=== PATIENT | male | born 1940 | race Caucasian/White ===

== ENCOUNTER 2022-01-08 16:52 | Inpatient (IN) | payer MEDICARE ==
[~2022-01-08] VITALS: Ht 182.9 cm; Wt 64.4 kg
--- NOTE | 2022-01-08 16:52 | NUR ---
PT IRA[place] FROM HOME TO ER BED 09, PER EMS REPORT PATIENT WAS FOUND BY NEIGHBOR IN THE FLOOR AT BEDSIDE S/P CALLED THEM FOR HELP. PER REPORT PT WAS NOTED HAVING DIFFICULTY FORMING WORDS AND APPEARS TO BE CONFUSED. NO NOTED FOCAL WEAKNESS WAREHOUSE FOREMAN. GOWNED AND PLACED ON MONITOR. VSS. AWAITING MD HOLLAND.
--- NOTE | 2022-01-08 16:57 | NUR ---
PT TAKEN TO CT.
[2022-01-08 17:25] LABS: BASOPHILS % (AUTO) 0.3 % (0.0-2.0); HEMATOCRIT 38 % (39-51); HEMOGLOBIN 12.9 g/dL (13.5-17.5); LYMPHOCYTES # (AUTO) 0.4 K/uL (0.8-4.8); LYMPHOCYTES % (AUTO) 7.9 % (20.0-44.0); MEAN CORPUSCULAR HGB CONC 34 g/dl (31.0-36.0); MEAN CORPUSCULAR VOLUME 96 fL (80-96); MONOCYTES # (AUTO) 0.4 K/uL (0.1-1.30); MONOCYTES % (AUTO) 7.8 % (2.0-12.0); NEUTROPHILS # (AUTO) 3.9 K/uL (1.8-8.9); PLATELET COUNT (AUTO) 97 K/uL (150-450); RED BLOOD CELL COUNT(AUTO) 3.98 MIL/uL (4.5-6.0); WHITE BLOOD COUNT (AUTO) 4.7 K/uL (4.3-11.0)
[2022-01-08 17:33] LABS: CALCIUM, SERUM 8.7 mg/dL (8.5-10.1); CARBON DIOXIDE 26 mmol/L (21-32); CHLORIDE 102 mmol/L (98-107); CREATININE 1.3 mg/dL (0.6-1.3); GLUCOSE 127 mg/dL (74-106); POTASSIUM 3.8 mmol/L (3.5-5.1); SODIUM SERUM 140 mmol/L (136-145); UREA NITROGEN, BLOOD 23 mg/dL (7-18)
[2022-01-08 17:39] LABS: ALANINE AMINOTRANSFERASE 24 U/L (12-78); ALBUMIN 3.3 g/dL (3.4-5.0); ALKALINE PHOSPHATASE 96 U/L (46-116); ASPARTATE AMINOTRANSFERASE 28 U/L (15-37); BILIRUBIN,DIRECT 0.3 mg/dL (0.0-0.2); BILIRUBIN,TOTAL 0.8 mg/dL (0.2-1.0); TOTAL PROTEIN, SERUM 6.5 g/dL (6.4-8.2)
[2022-01-08] MEDS ORDERED: IOHEXOL-350 100 ML VIAL IV ONE (18:09)
[2022-01-08] MEDS ORDERED: IV NS 0.9% 250 ML IV ONE (18:09)
[2022-01-08] MEDS ORDERED: IV NS 0.9% 1,000 ML BAG IV ONE (18:30)
--- NOTE | 2022-01-08 18:39 | NUR ---
COVID SWAB COLLECTED AND SENT TO LAB
--- NOTE | 2022-01-08 19:42 | NUR ---
RECEIVED PT IN ROOM 9. PT RESTING COMFORTABLY IN BED, ALERT AND ORIENTED FROM HOME. PT DENIES ANY PAIN AT THIS TIME. CONNECTED TO MONITOR. PROVIDED WARM BLANKET. WILL CONTINUE TO MONITOR
[2022-01-08] MEDS ORDERED: ENOXAPARIN SODIUM 40 MG/0.4 ML DISP.SYRIN SQ SCH (20:00)
[2022-01-08] MEDS ORDERED: ASPIRIN 81 MG TAB.CHEW PO ONE (20:00)
[2022-01-08] MEDS ORDERED: hydrALAZINE HCL IV 20 MG VIAL IV PRN (20:00)
[2022-01-08] MEDS ORDERED: ASPIRIN 81 MG TAB.CHEW ONE (20:18)
[2022-01-08] MEDS ORDERED: IV NS 0.9% 50 ML IV PRN (20:30)
--- NOTE | 2022-01-08 21:12 | NUR ---
CRITICAL: SONAM JIMENEZ MD MADE AWARE
--- NOTE | 2022-01-08 21:29 | NUR ---
PT NEIGHBOR [facility] LEFT CONTACT NUMBER [phone].
[2022-01-08] MEDS: SIMVASTATIN 20 MG TABLET PO SCH (22:00)
--- NOTE | 2022-01-08 22:00 | NUR ---
SIMVASTATIN NOT ADMIN DUE TO MEDICATION BEING UNVERIFIED BY PHARMACY.
--- NOTE | 2022-01-09 03:17 | NUR ---
PT SLEEPING COMOFORTABLY. PROVIDED WITH ADDITIONAL WARM BLANKETS. CALL LIGHT WITHIN REACH. V/S REMAIN WNL.
[2022-01-09 04:58] LABS: BASOPHILS % (AUTO) 0.3 % (0.0-2.0); HEMATOCRIT 38 % (39-51); MEAN CORPUSCULAR HGB CONC 34 g/dl (31.0-36.0); MEAN CORPUSCULAR VOLUME 96 fL (80-96); MONOCYTES # (AUTO) 0.3 K/uL (0.1-1.30); NEUTROPHILS # (AUTO) 3.3 K/uL (1.8-8.9); NEUTROPHILS % (AUTO) 71.7 % (43.0-81.0); PLATELET COUNT (AUTO) 95 K/uL (150-450); RED BLOOD CELL COUNT(AUTO) 3.97 MIL/uL (4.5-6.0); WHITE BLOOD COUNT (AUTO) 4.6 K/uL (4.3-11.0)
[2022-01-09 05:12] LABS: CALCIUM, SERUM 8.3 mg/dL (8.5-10.1); CREATININE 1.2 mg/dL (0.6-1.3); POTASSIUM 3.3 mmol/L (3.5-5.1)
--- NOTE | 2022-01-09 05:55 | NUR ---
urine collected and sent to lab
[2022-01-09 06:05] LABS: BILIRUBIN,URINE NEGATIVE (NEGATIVE); COLOR,URINE YELLOW (YELLOW); LEUKOCYTE ESTERASE ,URINE NEGATIVE (NEGATIVE); NITRITE, URINE NEGATIVE (NEGATIVE); PH,URINE 5.5 (5.0-8.0); PROTEIN,URINE TRACE mg/dl (NEGATIVE); UGLUCOSE NEGATIVE (NEGATIVE); UROBILINOGEN,URINE 0.2 EU/dL (0.2)
[2022-01-09 06:15] LABS: BACTERIA,URINE Rare /HPF (None Seen); RBC,URINE 0-2 /HPF (0-2); SQUAMOUS EPITHELIAL CELL,UR Few /HPF (None Seen); WBC,URINE 0-2 /HPF (0-3)
[2022-01-09 06:23] LABS: BASOPHILS % (MANUAL) 0 % (0.0-2.0); EOSINOPHILS % (MANUAL) 0 % (0-4); LYMPHOCYTES % (MANUAL) 19 % (16-48); MONOCYTES % (MANUAL) 7 % (0-11.0); NEUTROPHILS % (MANUAL) 74 (42-76)
--- NOTE | 2022-01-09 07:36 | NUR ---
GOING TO 104.
--- NOTE | 2022-01-09 07:41 | NUR ---
MAN RODRIGEUS, TO CALL BACK FOR REPORT.
--- NOTE | 2022-01-09 07:53 | NUR ---
REPORT GIVEN TO MAN RODRIGUES FOFR MARIA DOLORES
[2022-01-09] MEDS ORDERED: ASPIRIN EC 325 MG TABLET.DR PO SCH ×3 (09:00)
--- NOTE | 2022-01-09 09:15 | NUR ---
PT TRANSFERRED TO 104 VIA TATIANNA PEREZ PROTOCOL. WARM HANDOFF GIVEN TO MAN RODRIGUES.
--- NOTE | 2022-01-09 09:20 | NUR ---
teletype clerk note received patient from er with dx covid positive, alert oriented, on telemonitor sr hr 78 ,admitted under care nivia dnp, lt ac hl intact and flushed well , plan of care discussed with patient, safety measure implemented vs taken , not in distress, will monitor closely
[2022-01-09 09:34] VITALS: BP 120/77
--- NOTE | 2022-01-09 10:30 | NUR ---
OB/GYN PHYSICIAN NOTE PT EVAL DONE USING A WALKER ABLE O MAKE FEW STEPS
[2022-01-09] MEDS: IV NS 0.9% 1,000 ML IV PRN ×2 (10:31→10:35)
[2022-01-09] MEDS: PANTOPRAZOLE 40 MG TABLET.DR PO SCH (10:35)
[2022-01-09] MEDS: DOCUSATE SODIUM 100 MG CAPSULE PO SCH (10:35)
[2022-01-09] MEDS ORDERED: POTASSIUM CHLORIDE 20 MEQ TAB.PRT.SR PO SCH (11:00)
--- NOTE | 2022-01-09 11:29 | NUR ---
BICYCLE II ASSEMBLER NOTE TAKE TO MRI BRAIN
[2022-01-09 12:00] VITALS: BP 130/75
--- NOTE | 2022-01-09 13:00 | NUR ---
telephone supervisor note having lunch , able to eat self
[2022-01-09 16:00] VITALS: BP 127/75
--- NOTE | 2022-01-09 16:57 | NUR ---
television and radio repairer note noted patient incontinent now with bladder ,keep clean dry
--- NOTE | 2022-01-09 18:23 | NUR ---
BALL SORTER NOTE RESTING COMFORTABLY IN BED ALERT WITH SOME CONFUSION, ON IVF ORDERED, CALL LIGHT WITHIN REACH ,SAFETY MEASURE PROVIDED, BED ALARM IN PLACE, WILL CONT TO MONITOR Addendum: 01/09/22 at 1841 by LILIA AUSTIN RN PATIENT INCONTINENT WITH URINE , PER DR DYAN MARTIN TO PLACE PURE WICK NEEDED
[2022-01-09 20:00] VITALS: BP 130/78
--- NOTE | 2022-01-09 21:25 | NUR ---
TRASH TRUCK DRIVER OPENING NOTE PT RECEIVED IN BED, AWAKE, A&O X2, CONFUSED, TRIES TO GET OUT OF BED. PT ON RA WITH CURRENT O2SAT OF 94%; PT NOTED TO HAVE PRODUCTIVE COUGH, NO OTHER S/S OF RESP DISTRESS, NO SOB, NON-LABORED AND EQUAL BREATHING. PT ATTACHED TO EXTERNAL MONITOR SR WITH HR OF 66. IV ACCESS ON LAC 18G INTACT AND PATENT, FLUSHES EASILY WITH NO RESISTANCE, NS RUNNING AT 75 ML/HR. BED IN LOWEST POSITION, CALL LIGHT WITHIN REACH, SIDE RAILS UP X3. BED ALARM ON. WILL CONTINUE TO MONITOR THROUGHOUT THE NIGHT.
[2022-01-09] MEDS: SIMVASTATIN 20 MG TABLET PO SCH (21:44)
[2022-01-10] VITALS: BP 122/66
[2022-01-10] MEDS: IV NS 0.9% 1,000 ML IV PRN ×2 (03:56→17:04)
[2022-01-10 04:00] VITALS: BP 140/90
--- NOTE | 2022-01-10 06:31 | NUR ---
HEATER MECHANIC CLOSING NOTE PT REMAINS IN BED, ASLEEP, BUT EASILY AROUSABLE; A&O X2, CONFUSED. CONTINUES TO BE ON RA WITH O2SAT RANGING FROM 94%-96%; PT CONTINUES TO HAVE PRODUCTIVE COUGH, NO S/S OF RESP DISTRESS, NO SOB, NON-LABORED AND EQUAL BREATHING. ATTACHED TO EXTERNAL MONITOR SR WITH PVCS HR RANGING FROM 61- 69. IV ACCESS ON LAC 18G INTACT AND PATENT, FLUSHES EASILY WITH NO RESISTANCE, NS RUNNING AT 75 ML/HR. ALL DUE MEDS ADMINISTERED DURING THE NIGHT. BED IN LOWEST POSITION, CALL LIGHT WITHIN REACH, SIDE RAILS UP X3. BED ALARM ON. WILL ENDORSE TO DAYSHIFT NURSE TO CONTINUE CARE.
--- NOTE | 2022-01-10 07:32 | NUR ---
FACILITY MAINTENANCE TECHNICIAN OPENING NOTE PT RECEIVED IN BED, AWAKE, A&O X2, CONFUSED, TRIES TO GET OUT OF BED. PT ON RA ; PT NOTED TO HAVE PRODUCTIVE COUGH, NO OTHER S/S OF RESP DISTRESS, NO SOB, NON-LABORED AND EQUAL BREATHING. PT ATTACHED TO EXTERNAL MONITOR SR . IV ACCESS ON LAC 18G INTACT AND PATENT, FLUSHES EASILY WITH NO RESISTANCE, NS RUNNING AT 75 ML/HR. BED IN LOWEST POSITION, CALL LIGHT WITHIN REACH, SIDE RAILS UP X3. BED ALARM ON.
[2022-01-10 07:34] LABS: BASOPHILS % (AUTO) 0.1 % (0.0-2.0); EOSINOPHILS % (AUTO) 0.1 % (0.0-6.0); HEMATOCRIT 39 % (39-51); HEMOGLOBIN 13.2 g/dL (13.5-17.5); LYMPHOCYTES # (AUTO) 0.7 K/uL (0.8-4.8); LYMPHOCYTES % (AUTO) 15.9 % (20.0-44.0); MEAN CORPUSCULAR HGB CONC 34 g/dl (31.0-36.0); MEAN CORPUSCULAR VOLUME 95 fL (80-96); MONOCYTES # (AUTO) 0.3 K/uL (0.1-1.30); MONOCYTES % (AUTO) 6.6 % (2.0-12.0); NEUTROPHILS # (AUTO) 3.4 K/uL (1.8-8.9); NEUTROPHILS % (AUTO) 77.3 % (43.0-81.0); PLATELET COUNT (AUTO) 77 K/uL (150-450); RED BLOOD CELL COUNT(AUTO) 4.05 MIL/uL (4.5-6.0); WHITE BLOOD COUNT (AUTO) 4.4 K/uL (4.3-11.0)
[2022-01-10 07:41] LABS: CALCIUM, SERUM 7.9 mg/dL (8.5-10.1); CREATININE 0.9 mg/dL (0.6-1.3); PHOSPHORUS 2.3 mg/dL (2.5-4.9); POTASSIUM 3.7 mmol/L (3.5-5.1)
[2022-01-10 07:56] LABS: IRON, SERUM 11 ug/dl (50-175); TOTAL IRON BINDING CAPACITY 159 ug/dl (250-450)
[2022-01-10 08:00] VITALS: BP 138/80
[2022-01-10 08:31] LABS: FERRITIN 1879 ng/mL (8-388)
--- NOTE | 2022-01-10 08:53 | NUR ---
WOUND CARE CONSULT: REVIEWED CHART, NURSING DOCUMENTATION AND PHOTOS WHICH INDICATE REDNESS TO BUTTOCKS, DISCOLORATION OF SKIN ON UPPER EXTREMITIES AND LEFT ARM SKIN TEAR, PRESENT ON ADMISSION. RECOMMENDATIONS MADE FOR SKIN PROTECTION. DISCUSSED WITH NURSING STAFF. MD IN AGREEMENT WITH PLAN OF CARE.
[2022-01-10] MEDS: PANTOPRAZOLE 40 MG TABLET.DR PO SCH (08:58)
[2022-01-10] MEDS: DOCUSATE SODIUM 100 MG CAPSULE PO SCH (08:58)
[2022-01-10] MEDS ORDERED: ASPIRIN 81 MG TAB.CHEW PO SCH (09:00)
[2022-01-10] MEDS ORDERED: K PHOS NEUTRAL 250 MG TABLET PO ONE (10:00)
--- NOTE | 2022-01-10 11:35 | NUR ---
SS consult requested over the weekend for code stroke SW will follow up at a later time.
[2022-01-10] MEDS: Z GUARD REMEDY 4 OZ OINT TP SCH (11:53)
[2022-01-10] MEDS: Z GUARD REMEDY 4 OZ OINT TP PRN (11:53)
[2022-01-10 12:00] VITALS: BP 148/73
[2022-01-10] MEDS: ENSURE ENLIVE 237 ML LIQUID (VANILLA) PO SCH ×2 (12:29→17:02)
[2022-01-10 16:00] VITALS: BP 127/87
--- NOTE | 2022-01-10 18:59 | NUR ---
ZIG ZAG SPRING MACHINE OPERATOR CLOSING NOTE PT REMAINS IN BED, ASLEEP, BUT EASILY AROUSABLE; A&O X2, CONFUSED. CONTINUES TO BE ON RA WITH O2SAT RANGING FROM 94%-96%; PT CONTINUES TO HAVE PRODUCTIVE COUGH, NO S/S OF RESP DISTRESS, NO SOB, NON-LABORED AND EQUAL BREATHING. ATTACHED TO EXTERNAL MONITOR SR WITH PVCS HR RANGING FROM 61- 69. IV ACCESS ON LAC 20G INTACT AND PATENT, FLUSHES EASILY WITH NO RESISTANCE, NS RUNNING AT 75 ML/HR. ALL DUE MEDS ADMINISTERED DURING THE NIGHT. BED IN LOWEST POSITION, CALL LIGHT WITHIN REACH, SIDE RAILS UP X3. BED ALARM ON. WILL ENDORSE TO NIGHT NURSE TO CONTINUE CARE.
[2022-01-10 20:00] VITALS: BP 118/69
[2022-01-10] MEDS: SIMVASTATIN 20 MG TABLET PO SCH (22:14)
--- NOTE | 2022-01-10 23:45 | NUR ---
AGITATED Patient suddenly with outburst of agitation, aggressive. Unable to educate safety, risk for fall. Poor cognition. Notified SOLE ROUNDER Ariel with new orders place. PRN Ativan, Restraints.
[2022-01-11] MEDS ORDERED: LORAZEPAM INJ 2 MG/ML VIAL IV PRN
--- NOTE | 2022-01-11 00:14 | NUR ---
ATIVAN FOR AGITATION Given PRN Ativan, fall precaution maintained.
[2022-01-11 00:51] VITALS: BP 120/68
[2022-01-11 04:52] VITALS: BP 121/73
[2022-01-11 06:12] LABS: BASOPHILS % (AUTO) 0.1 % (0.0-2.0); EOSINOPHILS % (AUTO) 0.2 % (0.0-6.0); HEMATOCRIT 38 % (39-51); HEMOGLOBIN 13.3 g/dL (13.5-17.5); LYMPHOCYTES # (AUTO) 0.8 K/uL (0.8-4.8); LYMPHOCYTES % (AUTO) 16.9 % (20.0-44.0); MEAN CORPUSCULAR HGB CONC 35 g/dl (31.0-36.0); MEAN CORPUSCULAR VOLUME 95 fL (80-96); MONOCYTES # (AUTO) 0.4 K/uL (0.1-1.30); MONOCYTES % (AUTO) 8.8 % (2.0-12.0); NEUTROPHILS # (AUTO) 3.4 K/uL (1.8-8.9); PLATELET COUNT (AUTO) 76 K/uL (150-450); RED BLOOD CELL COUNT(AUTO) 4.01 MIL/uL (4.5-6.0); WHITE BLOOD COUNT (AUTO) 4.6 K/uL (4.3-11.0)
--- NOTE | 2022-01-11 06:14 | NUR ---
END OF SHIFT REPORT Patient is Oriented to self only, confused. Sinus rhythm in the Tele monitor HR 100's. Stable on room air. IV fluids infusing, good appetite. Had BM during the shift, incontinence care done. Still trying to get out bed unassisted, bilateral soft wrist restraints in place. Calm down and able to sleep with PRn Ativan. Turned and repositioned. Covid 19 test positive, maintained contact/droplet/eye protection precaution. Will endorse to oncoming RN.
[2022-01-11 06:38] LABS: CREATININE 0.8 mg/dL (0.6-1.3); PHOSPHORUS 2.3 mg/dL (2.5-4.9); POTASSIUM 3.6 mmol/L (3.5-5.1)
--- NOTE | 2022-01-11 07:28 | NUR ---
CANCER GENETIC COUNSELOR OPENING NOTE PT RECEIVED IN BED, AWAKE, A&O X2, CONFUSED, TRIES TO GET OUT OF BED. WAS ENDORSED THAT PATIENT BECAME VERY AGITATED LAST NIGHT AND HAD TO BE BUT IN BILATERAL RESTRAINS PT ON RA ; PT NOTED TO HAVE PRODUCTIVE COUGH, NO OTHER S/S OF RESP DISTRESS, NO SOB, NON-LABORED AND EQUAL BREATHING. PT ATTACHED TO EXTERNAL MONITOR SR . IV ACCESS ON LAC 18G INTACT AND PATENT, FLUSHES EASILY WITH NO RESISTANCE, NS RUNNING AT 75 ML/HR. BED IN LOWEST POSITION, CALL LIGHT WITHIN REACH, SIDE RAILS UP X3. BED ALARM ON.
[2022-01-11 08:00] VITALS: BP 108/78
[2022-01-11] MEDS: PANTOPRAZOLE 40 MG TABLET.DR PO SCH (08:03)
[2022-01-11] MEDS: Z GUARD REMEDY 4 OZ OINT TP SCH (08:03)
[2022-01-11] MEDS: Z GUARD REMEDY 4 OZ OINT TP PRN (08:03)
[2022-01-11] MEDS: DOCUSATE SODIUM 100 MG CAPSULE PO SCH (08:04)
[2022-01-11] MEDS: ENSURE ENLIVE 237 ML LIQUID (VANILLA) PO SCH ×3 (08:04→18:20)
[2022-01-11 08:34] LABS: BAND % (MANUAL) 3 % (0.0-5.0); LYMPHOCYTES % (MANUAL) 11 % (16-48); MONOCYTES % (MANUAL) 9 % (0-11.0); NEUTROPHILS % (MANUAL) 77 (42-76)
--- NOTE | 2022-01-11 08:48 | NUR ---
FRANK was notified by SHANNAN that there is no family contact. SW called [phone] noted on facesheet in hopes that his would answer. Call went to voicemail and FRANK left call back number. FRANK will follow up as needed. Per HEATH, pt. lives with his at home. Addendum: 01/11/22 at 0937 by PREETHI MARIE Per SHANNAN note, they have contacted the pt.'s : [facility] /[phone]
[2022-01-11 12:02] VITALS: BP 124/86
[2022-01-11] MEDS: SOD FERRIC GLUC 125 MG in IV NS 0.9% 100 ML IV SCH (15:13)
[2022-01-11] MEDS: IV NS 0.9% 1,000 ML IV PRN (15:14)
[2022-01-11] MEDS ORDERED: NEUTRA PHOS 1 POWD.PACKET PO ONE (15:30)
[2022-01-11 16:00] VITALS: BP 105/66
[2022-01-11] MEDS: PIPERACILLIN /TAZOBACTAM 3.375 G in IV D5W 50 ML IV SCH ×2 (18:20→23:30)
--- NOTE | 2022-01-11 19:00 | NUR ---
AUTOMOBILE RELOCATION ENGINEER CLOSING NOTE PT REMAINS IN BED, ASLEEP, BUT EASILY AROUSABLE; A&O X2, CONFUSED. CONTINUES TO BE ON RA ; , NO S/S OF RESP DISTRESS, NO SOB, NON-LABORED AND EQUAL BREATHING. ATTACHED TO EXTERNAL MONITOR SR WITH PVCS HR RANGING FROM 61- 69. IV ACCESS ON LAC 18G INTACT AND PATENT, FLUSHES EASILY WITH NO RESISTANCE, NS RUNNING AT 75 ML/HR. . BED IN LOWEST POSITION, CALL LIGHT WITHIN REACH, SIDE RAILS UP X3. BED ALARM ON. WILL NIGHT NURSE TO CONTINUE CARE.
[2022-01-11 20:00] VITALS: BP 121/73
[2022-01-11] MEDS: SIMVASTATIN 20 MG TABLET PO SCH (22:14)
[2022-01-12] VITALS (8 sets, daily range): BP systolic 106–128; BP diastolic 71–89
[2022-01-12] MEDS: PIPERACILLIN /TAZOBACTAM 3.375 G in IV D5W 50 ML IV SCH ×3 (05:00→17:41)
[2022-01-12 05:49] LABS: BASOPHILS % (AUTO) 0.1 % (0.0-2.0); EOSINOPHILS % (AUTO) 0.4 % (0.0-6.0); HEMATOCRIT 38 % (39-51); HEMOGLOBIN 13.1 g/dL (13.5-17.5); LYMPHOCYTES # (AUTO) 0.8 K/uL (0.8-4.8); LYMPHOCYTES % (AUTO) 19.2 % (20.0-44.0); MEAN CORPUSCULAR HGB CONC 35 g/dl (31.0-36.0); MEAN CORPUSCULAR VOLUME 94 fL (80-96); MONOCYTES # (AUTO) 0.4 K/uL (0.1-1.30); MONOCYTES % (AUTO) 8.5 % (2.0-12.0); NEUTROPHILS # (AUTO) 3.1 K/uL (1.8-8.9); NEUTROPHILS % (AUTO) 71.8 % (43.0-81.0); PLATELET COUNT (AUTO) 85 K/uL (150-450); RED BLOOD CELL COUNT(AUTO) 4.03 MIL/uL (4.5-6.0); WHITE BLOOD COUNT (AUTO) 4.3 K/uL (4.3-11.0)
[2022-01-12 06:15] LABS: CALCIUM, SERUM 8.1 mg/dL (8.5-10.1); CARBON DIOXIDE 24 mmol/L (21-32); CHLORIDE 102 mmol/L (98-107); CREATININE 0.8 mg/dL (0.6-1.3); GLUCOSE 102 mg/dL (74-106); PHOSPHORUS 2.3 mg/dL (2.5-4.9); POTASSIUM 3.5 mmol/L (3.5-5.1); SODIUM SERUM 135 mmol/L (136-145); UREA NITROGEN, BLOOD 12 mg/dL (7-18)
--- NOTE | 2022-01-12 07:15 | NUR ---
RN OPENING NOTE PT RECEIVED IN BED, AWAKE, A&O X2, CONFUSED, PT ON RA WITH CURRENT O2SAT OF 94%;TOLERATING WELL , NO OTHER S/S OF RESP DISTRESS, NO SOB, NON-LABORED AND EQUAL BREATHING. PT ATTACHED TO EXTERNAL MONITOR SR WITH PAC WITH HR OF 66. IV ACCESS ON LFA 22G INTACT AND PATENT, FLUSHES EASILY WITH NO RESISTANCE, NS RUNNING AT 75 ML/HR. BED IN LOWEST POSITION, CALL LIGHT WITHIN REACH, SIDE RAILS UP X3. BED ALARM ON. WILL CONTINUE TO MONITOR THROUGHOUT THE SHIFT .
--- NOTE | 2022-01-12 07:16 | NUR ---
BINGO WORKER CLOSING NOTE PT REMAINS IN BED, AWAKE, A&O X2, CONFUSED. PT ON RA WITH O2SAT IN THE 90S; PT NOTED TO HAVE PRODUCTIVE COUGH, NO OTHER S/S OF RESP DISTRESS, NO SOB, NON-LABORED AND EQUAL BREATHING. ATTACHED TO EXTERNAL MONITOR SR WITH HR IN THE 70S. IV ACCESS ON LAC 18G INTACT AND PATENT, FLUSHES EASILY WITH NO RESISTANCE, NS RUNNING AT 75 ML/HR. BILATERAL SOFT WRIST RESTRAINTS IN PLACE, NO SIGNS OF IMPAIRED SKIN OR CIRCULATION. PROVIDED PT WITH RELEASE OF RESTRAINTS, HYGIENE AND FLUIDS. ALL DUE MEDS ADMINISTERED DURING THE NIGHT. BED IN LOWEST POSITION, CALL LIGHT WITHIN REACH, SIDE RAILS UP X3. BED ALARM ON. WILL ENDORSE TO DAYSHIFT NURSE TO CONTINUE CARE.
[2022-01-12] MEDS: ENSURE ENLIVE 237 ML LIQUID (VANILLA) PO SCH ×3 (08:02→17:41)
[2022-01-12] MEDS: Z GUARD REMEDY 4 OZ OINT TP PRN ×2 (08:03→08:25)
[2022-01-12] MEDS: PANTOPRAZOLE 40 MG TABLET.DR PO SCH (08:07)
[2022-01-12] MEDS: DOCUSATE SODIUM 100 MG CAPSULE PO SCH (08:07)
[2022-01-12] MEDS: Z GUARD REMEDY 4 OZ OINT TP SCH (08:26)
[2022-01-12] MEDS ORDERED: ACETAMINOPHEN 325 MG TABLET PO PRN (09:30)
[2022-01-12 10:27] LABS: BILIRUBIN,URINE NEGATIVE (NEGATIVE); COLOR,URINE DARK YELLOW (YELLOW); LEUKOCYTE ESTERASE ,URINE NEGATIVE (NEGATIVE); NITRITE, URINE NEGATIVE (NEGATIVE); PH,URINE 6.5 (5.0-8.0); PROTEIN,URINE TRACE mg/dl (NEGATIVE); UGLUCOSE NEGATIVE (NEGATIVE)
[2022-01-12 10:34] LABS: BACTERIA,URINE Few /HPF (None Seen); RBC,URINE 0-2 /HPF (0-2); SQUAMOUS EPITHELIAL CELL,UR Rare /HPF (None Seen); WBC,URINE 0-2 /HPF (0-3)
[2022-01-12] MEDS: DOCUSATE SODIUM LIQ 100 MG/10 ML UDC PO SCH (11:51)
[2022-01-12 12:24] LABS: BAND % (MANUAL) 2 % (0.0-5.0); BASOPHILS % (MANUAL) 0 % (0.0-2.0); EOSINOPHILS % (MANUAL) 0 % (0-4); LYMPHOCYTES % (MANUAL) 13 % (16-48); MONOCYTES % (MANUAL) 9 % (0-11.0); NEUTROPHILS % (MANUAL) 76 (42-76)
[2022-01-12] MEDS: SOD FERRIC GLUC 125 MG in IV NS 0.9% 100 ML IV SCH (14:39)
--- NOTE | 2022-01-12 19:30 | NUR ---
TUBE TEST TECHNICIAN OPENING NOTE PT RECEIVED IN BED, AWAKE, A&O X2, CONFUSED, PT ON RA WITH CURRENT O2SAT OF 94%.TOLERATING WELL , NO S/S OF RESP DISTRESS, NO SOB, NON-LABORED AND EQUAL BREATHING. PT ON TELE MONITOR READING SB W/PAC. IV ACCESS ON LFA #22,INTACT AND PATENT, RUNNING NS RUNNING AT 75 ML/HR. ALL HOSPITAL SAFETY PRECAUTIONS IN PLACE. BED IS LOCKED IN LOWEST POSITION, 3 SIDE RAILS UP, CALL LIGHT WITHIN REACH. WILL CONTINUE TO MONITOR THROUGHOUT SHIFT
[2022-01-12] MEDS: SIMVASTATIN 20 MG TABLET PO SCH (21:21)
[2022-01-12] MEDS ORDERED: TAMSULOSIN 0.4 MG CAP.SR.24H PO SCH (22:00)
[2022-01-13] VITALS: BP 118/71
[2022-01-13] MEDS: PIPERACILLIN /TAZOBACTAM 3.375 G in IV D5W 50 ML IV SCH ×3 (00:42→11:40)
[2022-01-13 04:00] VITALS: BP 114/69
[2022-01-13 05:57] LABS: BASOPHILS % (AUTO) 0.1 % (0.0-2.0); EOSINOPHILS % (AUTO) 1.4 % (0.0-6.0); HEMATOCRIT 38 % (39-51); LYMPHOCYTES # (AUTO) 0.7 K/uL (0.8-4.8); LYMPHOCYTES % (AUTO) 15.8 % (20.0-44.0); MEAN CORPUSCULAR HGB CONC 34 g/dl (31.0-36.0); MEAN CORPUSCULAR VOLUME 95 fL (80-96); MONOCYTES # (AUTO) 0.4 K/uL (0.1-1.30); MONOCYTES % (AUTO) 7.7 % (2.0-12.0); NEUTROPHILS # (AUTO) 3.6 K/uL (1.8-8.9); PLATELET COUNT (AUTO) 91 K/uL (150-450); RED BLOOD CELL COUNT(AUTO) 4.04 MIL/uL (4.5-6.0); WHITE BLOOD COUNT (AUTO) 4.7 K/uL (4.3-11.0)
[2022-01-13 06:14] LABS: CARBON DIOXIDE 27 mmol/L (21-32); CHLORIDE 105 mmol/L (98-107); CREATININE 0.8 mg/dL (0.6-1.3); GLUCOSE 101 mg/dL (74-106); MAGNESIUM 2.2 mg/dL (1.8-2.4); POTASSIUM 3.6 mmol/L (3.5-5.1); SODIUM SERUM 137 mmol/L (136-145); UREA NITROGEN, BLOOD 14 mg/dL (7-18)
--- NOTE | 2022-01-13 06:45 | NUR ---
WASHATERIA ATTENDANT CLOSING NOTE PT ASLEEP IN BED,A&O X2, CONFUSED. CONTINUES TO BE ON RA ; , NO S/S OF RESP DISTRESS, NO SOB, NON-LABORED AND EQUAL BREATHING. ATTACHED TO EXTERNAL MONITOR SR HR 66.ALL DUE MEDS GIVEN . BED IN LOWEST POSITION, CALL LIGHT WITHIN REACH, SIDE RAILS UP X3. BED ALARM ON. WILL MORNING NURSE TO CONTINUE CARE.
--- NOTE | 2022-01-13 07:25 | NUR ---
RN OPEN NOTE PT RECEIVED IN BED, AWAKE, A&O X2, CONFUSED, PATIENT IS ON RA WITH CURRENT O2SAT OF 94%;TOLERATING WELL , NO OTHER S/S OF RESP DISTRESS, NO SOB, NON-LABORED AND EQUAL BREATHING. PT ATTACHED TO EXTERNAL MONITOR SR WITH PAC WITH HR OF 68. IV ACCESS ON LFA 22G INTACT AND PATENT, FLUSHES EASILY WITH NO RESISTANCE, NS RUNNING AT 75 ML/HR. BED IN LOWEST POSITION, CALL LIGHT WITHIN REACH, SIDE RAILS UP X3. BED ALARM ON. WILL CONTINUE TO MONITOR THROUGHOUT THE SHIFT .
[2022-01-13 08:00] VITALS: BP 130/85
--- NOTE | 2022-01-13 08:00 | NUR ---
RN NOTE RESTRAINS OF THE BILATERAL HANDS WAS REMOVED DUE TO PATIENT IS ALERT AND ORIENTED NO NEED FOR RESTRAINS AT THIS TIME . ns FLUID STOPED BY MD ORDER .
[2022-01-13] MEDS: DOCUSATE SODIUM LIQ 100 MG/10 ML UDC PO SCH (08:09)
[2022-01-13] MEDS: PANTOPRAZOLE 40 MG TABLET.DR PO SCH (08:09)
[2022-01-13] MEDS: ENSURE ENLIVE 237 ML LIQUID (VANILLA) PO SCH ×3 (08:13→16:35)
[2022-01-13] MEDS: Z GUARD REMEDY 4 OZ OINT TP SCH (08:13)
[2022-01-13 08:37] LABS: BAND % (MANUAL) 2 % (0.0-5.0); BASOPHILS % (MANUAL) 0 % (0.0-2.0); EOSINOPHILS % (MANUAL) 1 % (0-4); LYMPHOCYTES % (MANUAL) 16 % (16-48); MONOCYTES % (MANUAL) 8 % (0-11.0); NEUTROPHILS % (MANUAL) 73 (42-76)
[2022-01-13 12:00] VITALS: BP 118/72
[2022-01-13] MEDS ORDERED: Tamsulosin PO (13:27)
[2022-01-13] MEDS ORDERED: SIMV-46 PO (13:27)
[2022-01-13] MEDS ORDERED: ASPI-1169 PO (13:27)
[2022-01-13] MEDS ORDERED: PIPE3.379 IV (13:27)
[2022-01-13] MEDS ORDERED: ENOX40DI SQ (13:27)
[2022-01-13] MEDS ORDERED: PANT40TA49 PO (13:27)
[2022-01-13] MEDS ORDERED: ENOXAPARIN SODIUM 40 MG/0.4 ML DISP.SYRIN SQ SCH ×2 (13:30→16:00)
[2022-01-13] MEDS: SOD FERRIC GLUC 125 MG in IV NS 0.9% 100 ML IV SCH (13:50)
[2022-01-13 16:00] VITALS: BP 125/75
--- NOTE | 2022-01-13 16:06 | NUR ---
RN NOTE PATIENT IS AT STABLE CONDITION , ALERT , ORIENTED TIMES 3, DISCHARGE TO THE [facility] . DISCHARGE/TRANSFER INSTRUCTIONS PROVIDED TO THE PATIENT AND TO THE RN LOUANN AT THE [facility] . DISCHARGE PICTURE OF THE REDNESS OF THE LOW BACK , WAS NOT DONE BECAUSE PATIENT REFUSED .
== END 2022-01-13 17:29 | DRG 177 ==
LOC: ER 16:55 → TRANSITION 22:16 → TELE1 01-09 07:53
PROVIDERS: ADMIT Nurse Practitioner Acute Care; ATTEND Nurse Practitioner Family
DX: U07.1 COVID-19 (principal); J69.0 Pneumonitis due to inhalation of food and vomit; G45.9 Transient cerebral ischemic attack, unspecified; E44.0 Moderate protein-calorie malnutrition; Z68.1 Body mass index [BMI] 19.9 or less, adult; N17.9 Acute kidney failure, unspecified; R64 Cachexia; D69.6 Thrombocytopenia, unspecified; E86.0 Dehydration; F03.90 Unspecified dementia, unspecified severity, without behavioral disturbance, psychotic disturbance, mood disturbance, and anxiety; D63.8 Anemia in other chronic diseases classified elsewhere; D50.9 Iron deficiency anemia, unspecified; E88.09 Other disorders of plasma-protein metabolism, not elsewhere classified; R29.702 NIHSS score 2; E87.6 Hypokalemia; E83.39 Other disorders of phosphorus metabolism; W18.30XA Fall on same level, unspecified, initial encounter; Y92.009 Unspecified place in unspecified non-institutional (private) residence as the place of occurrence of the external cause; R47.1 Dysarthria and anarthria
CPT/HCPCS: 36415; 70450-TC; 70496-TC; 70498-TC; 70551-TC; 71045-TC; 80048-TC; 80061-TC; 80076-TC; 81001; 82550-TC; 82728-TC; 83540-TC; 83735-TC; 83880; 84100-TC; 84484-TC; 85025-TC; 85378-TC; 85652-TC; 85730-TC; 86140-TC; 86850-TC; 87081-TC; 87086-TC; 92526; 92611-TC; 93307-TC; 93880-TC; 97110-TC; 97116-TC; 97530-TC; C9803; G0378; J1650; J2060; J2543; J2916; J7030; J7050; J7060; Q9967

== ENCOUNTER 2022-02-09 16:09 | Inpatient (IN) | payer MEDICARE ==
[~2022-02-09] VITALS: Ht 182.9 cm; Wt 62.1 kg
[~2022-02-09 16:09] MED LIST: ASPI-1169 PO; ENOX40DI SQ; PANT40TA49 PO; PIPE3.379 IV; SIMV-46 PO; Tamsulosin PO
[2022-02-09] MEDS ORDERED: ACETAMINOPHEN ES 500 MG TABLET PO ONE (16:30)
[2022-02-09] MEDS ORDERED: IV NS 0.9% 1,000 ML BAG IV ONE (16:30)
[2022-02-09] MEDS ORDERED: AMIN30LI2 PO (16:33)
[2022-02-09] MEDS ORDERED: ACETAMINOPHEN ES 500 MG TABLET ONE (16:33)
[2022-02-09] MEDS ORDERED: SIMV-46 PO (16:33)
[2022-02-09] MEDS ORDERED: ASPI-1169 PO (16:33)
[2022-02-09] MEDS ORDERED: CHOL100043 PO (16:33)
[2022-02-09] MEDS ORDERED: BISA10SU11 RC (16:33)
[2022-02-09] MEDS ORDERED: OMEP20CA15 PO (16:33)
[2022-02-09] MEDS ORDERED: GUAI5SYR PO (16:33)
[2022-02-09] MEDS ORDERED: TAMS-12 PO (16:33)
[2022-02-09] MEDS ORDERED: ACET-868 PO (16:33)
[2022-02-09] MEDS ORDERED: MAGN400O6 PO (16:33)
[2022-02-09] MEDS ORDERED: NA P133E RC (16:33)
[2022-02-09] MEDS ORDERED: CRAN425C6 PO (16:33)
[2022-02-09] MEDS ORDERED: ASCO-352 PO (16:33)
[2022-02-09] MEDS ORDERED: ZINC220C6 PO (16:33)
[2022-02-09] MEDS ORDERED: DOCU-141 PO (16:33)
[2022-02-09] MEDS ORDERED: CEPH500C2 PO (16:33)
--- NOTE | 2022-02-09 16:39 | NUR ---
patient romulo 77 from [facility], sent by PMD for suspected UTI. On room air, breathing normally and unlabored. Connected to the monitor and pulse ox. kept comfortable, will continue to monitor accordingly.
[2022-02-09 16:53] LABS: BASOPHILS % (AUTO) 0.1 % (0.0-2.0); EOSINOPHILS % (AUTO) 0.2 % (0.0-6.0); HEMATOCRIT 41 % (39-51); LYMPHOCYTES # (AUTO) 0.3 K/uL (0.8-4.8); MEAN CORPUSCULAR HGB CONC 34 g/dl (31.0-36.0); MEAN CORPUSCULAR VOLUME 96 fL (80-96); MONOCYTES # (AUTO) 0.1 K/uL (0.1-1.30); MONOCYTES % (AUTO) 0.8 % (2.0-12.0); NEUTROPHILS # (AUTO) 7.6 K/uL (1.8-8.9); NEUTROPHILS % (AUTO) 94.9 % (43.0-81.0); PLATELET COUNT (AUTO) 153 K/uL (150-450); RED BLOOD CELL COUNT(AUTO) 4.25 MIL/uL (4.5-6.0)
[2022-02-09] MEDS ORDERED: CEFTRIAXONE 1GM BAG (ER ONLY) 1 GM/50 ML PIGGYBACK IV ONE (17:00)
[2022-02-09] MEDS ORDERED: CEFTRIAXONE 1GM BAG (ER ONLY) 50 ML IV ONE (17:00)
[2022-02-09 17:09] LABS: CALCIUM, SERUM 9.1 mg/dL (8.5-10.1); POTASSIUM 3.7 mmol/L (3.5-5.1)
[2022-02-09 17:15] LABS: BILIRUBIN,URINE NEGATIVE (NEGATIVE); COLOR,URINE YELLOW (YELLOW); LEUKOCYTE ESTERASE ,URINE SMALL (NEGATIVE); NITRITE, URINE NEGATIVE (NEGATIVE); PROTEIN,URINE NEGATIVE (NEGATIVE); UGLUCOSE NEGATIVE (NEGATIVE)
[2022-02-09 17:22] LABS: ALBUMIN 2.6 g/dL (3.4-5.0); BILIRUBIN,DIRECT 0.5 mg/dL (0.0-0.2); BILIRUBIN,TOTAL 0.9 mg/dL (0.2-1.0); TOTAL PROTEIN, SERUM 6.4 g/dL (6.4-8.2)
[2022-02-09 17:29] LABS: BACTERIA,URINE 4+ /HPF (None Seen); RBC,URINE 0-2 /HPF (0-2); SQUAMOUS EPITHELIAL CELL,UR Few /HPF (None Seen); WBC,URINE 51-80 /HPF (0-3)
--- NOTE | 2022-02-09 18:36 | NUR ---
covid swab collected and sent to lab.
--- NOTE | 2022-02-09 19:42 | NUR ---
PT RESTING COMFORTABLY. WILL CONTINUE TO MONITOR. NOT ON OXYGEN. PENDING ADMISSION. AOX4. AWARE OF PLAN OF CARE.
[2022-02-09] MEDS ORDERED: ALBUTEROL FS 2.5 MG/0.5 ML VIAL.NEB NEB PRN (20:00)
[2022-02-09] MEDS ORDERED: hydrALAZINE HCL IV 20 MG VIAL IV PRN (20:00)
[2022-02-09] MEDS ORDERED: MORPHINE SULFATE INJ 2 MG/ML DISP.SYRIN IV PRN (20:00)
[2022-02-09] MEDS ORDERED: AZITHROMYCIN 500 MG in IV D5W 250 ML IV SCH (20:00)
[2022-02-09] MEDS ORDERED: GUAIFENESIN/D-METHORPHAN HB 5 ML UDC PO PRN (20:00)
[2022-02-09] MEDS ORDERED: ACETAMINOPHEN 325 MG TABLET PO PRN (20:00)
[2022-02-09] MEDS ORDERED: ONDANSETRON HCL/PF 4 MG/2 ML VIAL IVP PRN (20:00)
[2022-02-09] MEDS: IV NS 0.9% 1,000 ML IV SCH (21:00)
[2022-02-09] MEDS ORDERED: HEPARIN SODIUM, PORCINE 5000 UNITS/1 ML VIAL ONE (21:13)
[2022-02-09] MEDS: HEPARIN SODIUM, PORCINE 5000 UNITS/1 ML VIAL SQ SCH (21:18)
[2022-02-09] MEDS: SIMVASTATIN 20 MG TABLET PO SCH (22:00)
[2022-02-09] MEDS: TAMSULOSIN 0.4 MG CAP.SR.24H PO SCH (22:00)
[2022-02-09] MEDS: ZITHROMAX 500 MG/250 ML D5W IV SCH ×2 (22:30)
[2022-02-09] MEDS ORDERED: AZITHROMYCIN 500 MG VIAL ONE (22:39)
[2022-02-10] MEDS: IPRATROPIUM/ALBUTEROL INHALER IH SCH
[2022-02-10] MEDS ORDERED: CEFEPIME 1 GM in IV D5W 50 ML IV ONE ×2
[2022-02-10] MEDS ORDERED: CEFEPIME 1 GM VIAL ONE (01:15)
[2022-02-10] MEDS ORDERED: SIMVASTATIN 20 MG TABLET ONE (01:16)
[2022-02-10] MEDS ORDERED: TAMSULOSIN 0.4 MG CAP.SR.24H ONE (01:16)
[2022-02-10 05:42] LABS: BASOPHILS % (AUTO) 0.1 % (0.0-2.0); EOSINOPHILS % (AUTO) 0.1 % (0.0-6.0); HEMATOCRIT 36 % (39-51); HEMOGLOBIN 12.5 g/dL (13.5-17.5); LYMPHOCYTES # (AUTO) 1.1 K/uL (0.8-4.8); LYMPHOCYTES % (AUTO) 8.9 % (20.0-44.0); MEAN CORPUSCULAR HGB CONC 34 g/dl (31.0-36.0); MEAN CORPUSCULAR VOLUME 95 fL (80-96); MONOCYTES # (AUTO) 0.5 K/uL (0.1-1.30); MONOCYTES % (AUTO) 3.9 % (2.0-12.0); NEUTROPHILS # (AUTO) 11.2 K/uL (1.8-8.9); PLATELET COUNT (AUTO) 145 K/uL (150-450); RED BLOOD CELL COUNT(AUTO) 3.82 MIL/uL (4.5-6.0); WHITE BLOOD COUNT (AUTO) 12.9 K/uL (4.3-11.0)
[2022-02-10 06:56] LABS: ALBUMIN 2.2 g/dL (3.4-5.0); BILIRUBIN,TOTAL 0.9 mg/dL (0.2-1.0); CALCIUM, SERUM 8.7 mg/dL (8.5-10.1); CREATININE 0.8 mg/dL (0.6-1.3); MAGNESIUM 1.8 mg/dL (1.8-2.4); PHOSPHORUS 2.7 mg/dL (2.5-4.9); POTASSIUM 4.3 mmol/L (3.5-5.1); TOTAL PROTEIN, SERUM 5.8 g/dL (6.4-8.2)
--- NOTE | 2022-02-10 07:20 | NUR ---
RECEVED PT FROM [facility] PT AWAKE AND FOLLOW COM[facility] RESPIRTION SPONT AND EASY WATING FOR MEDICALE FLOOR BED
[2022-02-10] MEDS: OMEPRAZOLE 20 MG CAPSULE.DR PO SCH (07:30)
--- NOTE | 2022-02-10 08:35 | NUR ---
WATING FOR MEDICALE FLOOR BED
[2022-02-10] MEDS: HEPARIN SODIUM, PORCINE 5000 UNITS/1 ML VIAL SQ SCH ×2 (09:00→20:53)
[2022-02-10] MEDS: ASPIRIN 81 MG TAB.CHEW PO SCH (09:00)
[2022-02-10] MEDS ORDERED: CEFTRIAXONE 1 G in IV D5W 50 ML IV SCH (09:00)
--- NOTE | 2022-02-10 09:54 | NUR ---
BED [id number]
--- NOTE | 2022-02-10 10:17 | NUR ---
HAND OFF TO SOON.CATARINO RN TO ROOM 114-1STable vs and condition
[2022-02-10] MEDS: IV NS 0.9% 1,000 ML IV SCH ×2 (11:11→22:54)
--- NOTE | 2022-02-10 11:30 | NUR ---
telecom field technician note received patient from ER. patient is alert and oriented x3. patient is on room air tolerating well at 93%. patient complains of no pain or discomfort. patient has iv site on left ac.iv intact and patent, flushing well. all safety measures in place. call light within reach. bed locked at lowest position. bedside table next to patient. bed alarm on.side rails up x2.
[2022-02-10 12:00] VITALS: BP 110/57
--- NOTE | 2022-02-10 12:00 | NUR ---
patient refused heparin and aspirin. educated on the benefits of the medications but patient still refused.
[2022-02-10] MEDS: DOCUSATE SODIUM 100 MG CAPSULE PO SCH (12:21)
[2022-02-10] MEDS: CEFEPIME 1 GM in IV D5W 50 ML IV SCH ×2 (12:21→20:52)
[2022-02-10] MEDS: ASCORBIC ACID 500 MG TABLET PO SCH (12:21)
[2022-02-10 16:00] VITALS: BP 103/59
--- NOTE | 2022-02-10 17:30 | NUR ---
patient iv removed and came off. placed a new iv on left forearm 22 guage. iv patent and flushing well.
--- NOTE | 2022-02-10 19:30 | NUR ---
RN NOTES RECEIVED PT FOR CONTINUITY OF CARE. PATIENT A/OX2-3 IN NO S/SX OF ACUTE DISTRESS AT THIS TIME; CURRENTLY ON ROOM AIR ; WITH 02 SAT >95% AT THIS TIME.WITH IV ACCESS L FA#22 PATENT, INTACT AND FLUSHING WELL. WITH RUNNING NS@75CC/HR. WILL ENSURE SAFETY MEASURES WITHIN THE SHIFT. PATIENT BED ALARM IS ON. HEAD OF BED ELEVATED. BED IS LOCKED, IN LOWEST POSITION AND SIDE RAILS UP. CALL LIGHT WITHIN REACH OF THE PATIENT. WILL CONTINUE TO MONITOR AND REASSESS FOR ANY CHANGES AND WILL CARRY OUT ANY ONGOING AND ACTIVE MD ORDER.
[2022-02-10 20:00] VITALS: BP_SYST 136; BP_SYST 96; BP_DIAS 61; BP_DIAS 72
[2022-02-10] MEDS: ZITHROMAX 500 MG/250 ML D5W IV SCH ×2 (20:52)
--- NOTE | 2022-02-10 20:53 | NUR ---
telephone interceptor operator closing note patient is alert and oriented x3. patient has periods of confusion and needs reorientation. patient is on room air tolerating well at 95%.patient iv on left forearm intact, patent, flushes well.patient has generalized weakness and has diaper.kept clean and dry.all needs met. patient has normal saline running at 75ml/hr. all safety measures in place. call light within reach. bed locked at lowest position. bedside table within reach. bed alarm on.
[2022-02-10] MEDS: SIMVASTATIN 20 MG TABLET PO SCH (21:02)
[2022-02-10] MEDS: TAMSULOSIN 0.4 MG CAP.SR.24H PO SCH (21:02)
[2022-02-11] MEDS ORDERED: IPRATROPIUM/ALBUTEROL INHALER ONE (00:20)
[2022-02-11 04:00] VITALS: BP 96/64
--- NOTE | 2022-02-11 04:00 | NUR ---
RN NOTES PATIENT REMAINED TO BE IN NO SIGNS OF ACUTE RESPIRATORY DISTRESS , SAFE ENVIRONMENT MAINTAINED FOR PT. AM PATIENT CARE ASSISTANCE RENDERED. WILL CONTINUE TO MONITOR AND REASSESS FOR ANY CHANGES THROUGHOUT THE SHIFT.
[2022-02-11] MEDS: IPRATROPIUM/ALBUTEROL INHALER IH SCH ×5 (05:46→17:27)
--- NOTE | 2022-02-11 06:33 | NUR ---
RN CLOSING NOTE: PATIENT REMAINS IN ROOM IN NO SIGNS OF RESPIRATORY DISTRESS, PATIENT STILL ON ROOM AIR;TOLERATING WELL SATURATING @ >95% SP02. SAFETY MEASURES IMPLEMENTED, BED IN LOWEST POSITION, LOCKED, SIDE RAILS UP, CALL LIGHT WITHIN REACH. ALL NEEDS AND ORDERS ADDRESSED DURING THE SHIFT. IV ACCESS MAINTAINED INTACT, SECURED AND FLUSHING WELL. ALL DUE MEDS GIVEN ORDERED & SCHEDULED ; PATIENT TOLERATED WELL. PATIENT KEPT CLEAN AND COMFORTABLE WITHIN THE SHIFT. PATIENT ENDORSED TO INCOMING SHIFT RN WITH STABLE VITAL SIGN AND FOR CONTINUITY OF CARE.
[2022-02-11 06:41] LABS: BASOPHILS % (AUTO) 0.3 % (0.0-2.0); EOSINOPHILS % (AUTO) 2.2 % (0.0-6.0); HEMATOCRIT 33 % (39-51); HEMOGLOBIN 11.3 g/dL (13.5-17.5); LYMPHOCYTES # (AUTO) 1.3 K/uL (0.8-4.8); LYMPHOCYTES % (AUTO) 22.1 % (20.0-44.0); MEAN CORPUSCULAR HGB CONC 34 g/dl (31.0-36.0); MEAN CORPUSCULAR VOLUME 95 fL (80-96); MONOCYTES # (AUTO) 0.4 K/uL (0.1-1.30); MONOCYTES % (AUTO) 7.9 % (2.0-12.0); NEUTROPHILS # (AUTO) 3.9 K/uL (1.8-8.9); NEUTROPHILS % (AUTO) 67.5 % (43.0-81.0); PLATELET COUNT (AUTO) 133 K/uL (150-450); RED BLOOD CELL COUNT(AUTO) 3.46 MIL/uL (4.5-6.0); WHITE BLOOD COUNT (AUTO) 5.7 K/uL (4.3-11.0)
[2022-02-11 07:20] LABS: CALCIUM, SERUM 8.6 mg/dL (8.5-10.1); CREATININE 0.8 mg/dL (0.6-1.3); POTASSIUM 3.5 mmol/L (3.5-5.1)
[2022-02-11] MEDS: OMEPRAZOLE 20 MG CAPSULE.DR PO SCH (07:30)
--- NOTE | 2022-02-11 07:40 | NUR ---
RN OPENING NOTES RECEIVED PT SLEEPING, ALERT TO NAME. PATIENT CURRENTLY ON ROOM AIR ; NO SOB NOTED. NO C/O OF PAIN AT THIS TIME. WITH IV ACCESS L FA#22 PATENT, INTACT AND FLUSHING WELL. WITH RUNNING NS@75CC/HR. HEAD OF BED ELEVATED. BED IS LOCKED, IN LOWEST POSITION AND SIDE RAILS UP. CALL LIGHT WITHIN REACH OF THE PATIENT. WILL CONTINUE TO MONITOR.
[2022-02-11] MEDS: ASCORBIC ACID 500 MG TABLET PO SCH (08:27)
[2022-02-11] MEDS: DOCUSATE SODIUM 100 MG CAPSULE PO SCH (08:27)
[2022-02-11] MEDS: ASPIRIN 81 MG TAB.CHEW PO SCH (08:28)
[2022-02-11] MEDS: HEPARIN SODIUM, PORCINE 5000 UNITS/1 ML VIAL SQ SCH ×2 (08:29→21:47)
--- NOTE | 2022-02-11 08:57 | NUR ---
WOUND CARE CONSULT: PT REFUSED TO TURN FOR SKIN ASSESSMENT. ADMISSION PHOTO INDICATES SACRAL INTACT DEEP TISSUE INJURY WITH SCARRING, PRESENT ON ADMISSION. PT IS INCONTINENT. DISCUSSED SKIN PROTECTION WITH NURSING STAFF. MD IN AGREEMENT WITH PLAN OF CARE.
[2022-02-11] MEDS ORDERED: Z GUARD REMEDY 4 OZ OINT TP PRN (09:00)
[2022-02-11] MEDS: PANTOPRAZOLE 40 MG TABLET.DR PO SCH (09:24)
[2022-02-11] MEDS: CEFEPIME 1 GM in IV D5W 50 ML IV SCH ×2 (09:46→21:42)
[2022-02-11 16:00] VITALS: BP 98/54
[2022-02-11] MEDS: IV NS 0.9% 1,000 ML IV SCH (17:32)
--- NOTE | 2022-02-11 18:02 | NUR ---
EN CLOSING NOTE: PATIENT AWAKE, ALERT AND VERBALLY RESPONSIVE. PATIENT REMAINS IN ROOM AIR , NO SOB NOTED. NO SIGNS OF RESPIRATORY DISTRESS, TOLERATING WELL SATURATING @ 94-95%. SAFETY MEASURES IMPLEMENTED, BED IN LOWEST POSITION, LOCKED, SIDE RAILS UP, CALL LIGHT WITHIN REACH. ALL NEEDS AND ORDERS ADDRESSED DURING THE SHIFT. IV ACCESS MAINTAINED INTACT, SECURED AND FLUSHING WELL, WITH 0.9 NS RUNNING @75ML/HR. ALL DUE MEDS GIVEN ORDERED & SCHEDULED ; PATIENT TOLERATED WELL. PATIENT KEPT CLEAN AND COMFORTABLE WITHIN THE SHIFT. WILL ENDORSED TO RESOURCE COORDINATOR NURSE FOR MARIA DOLORES.
[2022-02-11 20:00] VITALS: BP 90/60
[2022-02-11] MEDS: ZITHROMAX 500 MG/250 ML D5W IV SCH ×2 (21:42)
[2022-02-11] MEDS: SIMVASTATIN 20 MG TABLET PO SCH (21:43)
[2022-02-11] MEDS: TAMSULOSIN 0.4 MG CAP.SR.24H PO SCH (21:43)
[2022-02-12] MEDS: IV NS 0.9% 1,000 ML IV SCH (03:11)
[2022-02-12 04:00] VITALS: BP 108/70
[2022-02-12] MEDS: IPRATROPIUM/ALBUTEROL INHALER IH SCH ×2 (06:14)
[2022-02-12 07:15] LABS: BASOPHILS % (AUTO) 0.3 % (0.0-2.0); EOSINOPHILS % (AUTO) 2.2 % (0.0-6.0); HEMATOCRIT 34 % (39-51); HEMOGLOBIN 11.5 g/dL (13.5-17.5); LYMPHOCYTES # (AUTO) 1.3 K/uL (0.8-4.8); LYMPHOCYTES % (AUTO) 25.8 % (20.0-44.0); MEAN CORPUSCULAR HGB CONC 34 g/dl (31.0-36.0); MEAN CORPUSCULAR VOLUME 95 fL (80-96); MONOCYTES # (AUTO) 0.3 K/uL (0.1-1.30); MONOCYTES % (AUTO) 6.7 % (2.0-12.0); NEUTROPHILS # (AUTO) 3.2 K/uL (1.8-8.9); PLATELET COUNT (AUTO) 144 K/uL (150-450); RED BLOOD CELL COUNT(AUTO) 3.53 MIL/uL (4.5-6.0); WHITE BLOOD COUNT (AUTO) 4.9 K/uL (4.3-11.0)
[2022-02-12 07:36] LABS: CALCIUM, SERUM 8.6 mg/dL (8.5-10.1); CREATININE 0.8 mg/dL (0.6-1.3); POTASSIUM 3.6 mmol/L (3.5-5.1)
--- NOTE | 2022-02-12 08:14 | NUR ---
RN OPENING NOTE PATIENT RECEIVED IN BED, AO X 4, ABLE TO RESPONDS ALL STIMULI. IN NO ACUTE DISTRESS NOTED. RESPIRATORY EVEN AND UNLABORED ON ROOM AIR. SKIN IS WARM TO TOUCH, KEEP CLEAN/DRY. KEPT ELEVATED HOB FOR ENSURE AIRWAY AND ASPIRATION PRECAUTION, ALSO LOWEST POSITION OF THE BED, S/R UP X 2, BED ALARM IS ON AT ALL THE TIMES. ALL SAFETY PRECAUTION APPLIED. CALL LIGHT WITHIN REACH, WILL CONTINUE TO MONITOR.
[2022-02-12] MEDS: CEFEPIME 1 GM in IV D5W 50 ML IV SCH (08:52)
[2022-02-12] MEDS: HEPARIN SODIUM, PORCINE 5000 UNITS/1 ML VIAL SQ SCH (08:52)
[2022-02-12] MEDS: ASCORBIC ACID 500 MG TABLET PO SCH (08:53)
[2022-02-12] MEDS: PANTOPRAZOLE 40 MG TABLET.DR PO SCH (08:53)
[2022-02-12] MEDS: DOCUSATE SODIUM 100 MG CAPSULE PO SCH (08:53)
[2022-02-12] MEDS: ASPIRIN 81 MG TAB.CHEW PO SCH (08:53)
[2022-02-12] MEDS ORDERED: CEFT1VIA15 IV (09:57)
--- NOTE | 2022-02-12 11:42 | NUR ---
PATIENT D/C TO [facility], GIVEN REPORT [facility]/DESIGN ENGINEERING TECHNICIAN INCLUDE PIC UP TIME AND CONTINUE TO ABX IV FOUR DAYS MORE DAILY.
[2022-02-12 12:00] VITALS: BP 115/75
--- NOTE | 2022-02-12 13:34 | NUR ---
ambulance already at bedside patient refused to go to [facility] at bedside wants to take her home,SHANNAN GENTILE NOTIFIED need to arrange antibiotics first,DR. ZAIDI NOTIFIED. WANTS AMBULANCE TO HOME CM AWARE.
--- NOTE | 2022-02-12 14:00 | NUR ---
PATIENT REFUSED TO TRANSFER TO [facility], [facility] REFUSED.
[2022-02-12] MEDS ORDERED: ENSURE ENLIVE 237 ML LIQUID (VANILLA) PO SCH (17:00)
--- NOTE | 2022-02-12 17:30 | NUR ---
2 community engagement manager PICKED UP PATIENT AND GIVEN REPORT INCLUDE PATIENT CONTINUE TO ABX IV FOUR DAYS MORE AT HOME WITH HOME HEALTH.
[2022-02-12] MEDS ORDERED: PROSOURCE / PROSTAT (PYXIS) 30 ML UDC GT SCH (18:00)
== END 2022-02-12 17:44 | disposition home health service (06) | DRG 871 ==
LOC: ER 16:11 → TRANSITION 20:53 → TELE1 02-10 10:06 → MEDSG1 02-10 10:30
PROVIDERS: ADMIT Internal Medicine; ATTEND Internal Medicine
DX: A41.51 Sepsis due to Escherichia coli [E. coli] (principal); G93.41 Metabolic encephalopathy; R53.2 Functional quadriplegia; E44.0 Moderate protein-calorie malnutrition; N39.0 Urinary tract infection, site not specified; R64 Cachexia; D68.59 Other primary thrombophilia; Z68.1 Body mass index [BMI] 19.9 or less, adult; J98.11 Atelectasis; Z20.822 Contact with and (suspected) exposure to COVID-19; Z79.82 Long term (current) use of aspirin; Z79.899 Other long term (current) drug therapy; E88.09 Other disorders of plasma-protein metabolism, not elsewhere classified; Z86.73 Personal history of transient ischemic attack (TIA), and cerebral infarction without residual deficits; F03.90 Unspecified dementia, unspecified severity, without behavioral disturbance, psychotic disturbance, mood disturbance, and anxiety; R74.8 Abnormal levels of other serum enzymes; E78.5 Hyperlipidemia, unspecified; N40.0 Benign prostatic hyperplasia without lower urinary tract symptoms; Z86.16 Personal history of COVID-19; F09 Unspecified mental disorder due to known physiological condition; E86.0 Dehydration; Z74.09 Other reduced mobility; B96.1 Klebsiella pneumoniae [K. pneumoniae] as the cause of diseases classified elsewhere; B96.20 Unspecified Escherichia coli [E. coli] as the cause of diseases classified elsewhere
CPT/HCPCS: 36415; 71045-TC; 80048-TC; 80053-TC; 80076-TC; 81001; 82962-TC; 83605-TC; 83735-TC; 84100-TC; 85025-TC; 85730-TC; 87040-TC; 87081-TC; 87086-TC; 87186-TC; 92526; 92611-TC; C9803; G0378; J0456; J0692; J0696; J1644; J2270; J2405; J7030; J7060